=== PATIENT | female | born 1970 | race Caucasian/White ===

== ENCOUNTER 2016-10-12 07:11 | Emergency (ER) | payer OTHER ==
[~2016-10-12] VITALS: Ht 152.4 cm; Wt 74.5 kg
[~2016-10-12 07:11] MED LIST: ADVIL COLD &1 TABLET PO; ANTIVERT25 MG PO; DORZOLAMIDE-TIM10 ML BOTH EYES; MACROBID100 MG PO; NAPROSYN500 MG PO; NOHOMEMEDS; NORCO 5/3251 TABLET PO; NORVASC5 MG PO; PYRIDIUM100 MG PO; SINGULAIR10 MG PO; [UNRECOGNIZED DRUG - OTHER] PO
[2016-10-12] MEDS ORDERED: AUGMENTIN875 MG PO (09:30)
[2016-10-12] MEDS ORDERED: FLEXERIL10 MG PO (09:30)
[2016-10-12 10:06] VITALS: BP 124/71
== END 2016-10-12 10:06 | disposition home or self-care (01) ==
LOC: EME 07:11
DX: J32.9 Chronic sinusitis, unspecified (principal); J30.9 Allergic rhinitis, unspecified
CPT/HCPCS: 93005; 99281; 99283